=== PATIENT | female | born 1950 | race Caucasian/White ===

== ENCOUNTER → 2016-10-06 | Outpatient (CLI) | payer MEDICARE, BC | LOC: KOH-I 08:27 | DX: R10.9 Unspecified abdominal pain (principal) | CPT/HCPCS: 76700 ==

== ENCOUNTER → 2016-10-31 | Outpatient (CLI) | payer MEDICARE, BC | LOC: NM 12:18 | DX: R10.9 Unspecified abdominal pain (principal) | CPT/HCPCS: 78226 ==

== ENCOUNTER → 2020-06-20 | Outpatient (CLI) | payer MEDICARE, BC ==
[~2020-06-20] MED LIST: ASPIR-LOW81 MG PO; CALCIUM 600 +1 EA11 PO; CATAPRES0.2 MG PO; COZAAR100 MG PO; CYANOCOBAL1000 MCG/1 INJ; FENOFIBRIC ACID45 MG PO; FOSAMAX70 MG PO; HYDROXYZINE HCL10 MG PO; LIPITOR TAB 1010 MG PO; LOVENOX30 MG/0.3 SQ; PERCOCET 10-321 EACH PO; PROTONIX40 MG PO; SINEQUAN CAP 5050 MG PO; SYNTHROID50 MCG PO; TOPROL XL25 MG PO; VITAMIN B12 INJECTIO IM; VITAMIN D250000 UNIT PO; VITAMIN D350000 UNIT PO; WELLBUTRIN SR200 MG PO
== END ==
LOC: MAMO 09:27
DX: Z12.31 Encounter for screening mammogram for malignant neoplasm of breast (principal); Z90.11 Acquired absence of right breast and nipple; Z85.3 Personal history of malignant neoplasm of breast; Z78.0 Asymptomatic menopausal state
CPT/HCPCS: 77063; 77067

== ENCOUNTER → 2020-07-17 | Outpatient (CLI) | payer MEDICARE, BC | LOC: US 14:35 | DX: H53.2 Diplopia (principal); H53.129 Transient visual loss, unspecified eye | CPT/HCPCS: 93880 ==

== ENCOUNTER → 2020-12-17 | Outpatient (CLI) | payer MEDICARE, BC | LOC: RAD 08:16 → EXRD 08:16 → RAD 09:00 → EXRD 09:30 | DX: R13.10 Dysphagia, unspecified (principal); M81.0 Age-related osteoporosis without current pathological fracture | CPT/HCPCS: 74230; 77080; 92611-GN ==